=== PATIENT | male | born 1960 | race African-American/Black ===

== ENCOUNTER 2017-07-14 15:52 | Emergency (ER) | payer MEDICAID, OTHER ==
[~2017-07-14] VITALS: Ht 170.2 cm; Wt 74.8 kg
[2017-07-14] MEDS ORDERED: ATORVASTATIN TAB 40MG (16:02)
[2017-07-14] MEDS ORDERED: ASPIRIN EC 81 MG TABLET (16:02)
[2017-07-14] MEDS ORDERED: GLIPIZIDE 5 MG (16:02)
[2017-07-14] MEDS ORDERED: LACTULOSE (16:02)
[2017-07-14] MEDS ORDERED: CLOTRIMAZOLE 1% CREAM (16:02)
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
--- NOTE | 2017-07-14 17:19 | NUR ---
[employer] officers here speaking to patient.
--- NOTE | 2017-07-14 18:03 | NUR ---
Patient states pain has diminished.
--- NOTE | 2017-07-14 18:29 | NUR ---
DC, Rx and follow up instructions given and explained to patient who states he understands all instructions.
== END 2017-07-14 18:30 | disposition home or self-care (01) ==
LOC: ER 15:52
DX: S49.92XA Unspecified injury of left shoulder and upper arm, initial encounter (principal); M50.321 Other cervical disc degeneration at C4-C5 level; M50.322 Other cervical disc degeneration at C5-C6 level; M50.323 Other cervical disc degeneration at C6-C7 level; M19.012 Primary osteoarthritis, left shoulder; E11.9 Type 2 diabetes mellitus without complications; Z79.82 Long term (current) use of aspirin; V79.9XXA Bus occupant (driver) (passenger) injured in unspecified traffic accident, initial encounter; Y93.89 Activity, other specified; Y92.413 State road as the place of occurrence of the external cause; Y99.9 Unspecified external cause status
CPT/HCPCS: 72125; 73030; 99284; A4663